=== PATIENT | male | born 1995 | race Two or more races ===

== ENCOUNTER 2022-01-18 02:38 | Emergency (ER) | payer SELFPAY ==
[2022-01-18 03:00] VITALS: BP 135/83; PULSE 109; RESP 16; TEMP 37.1; O2SAT 100; BMI 21.0
[2022-01-18 03:42] VITALS: BP 117/56; PULSE 93; RESP 14; O2SAT 98
[2022-01-18 04:00] LABS: Influenza A PCR POSITIVE (Negative); Influenza B PCR NEGATIVE (Negative); Resp Syncy Virus RNA Qual PCR NEGATIVE (Negative); SARS COV2 PCR INHOUSE NEGATIVE (Negative)
--- NOTE | 2022-01-18 04:16 | ED.GENADULT ---
HPI - General Adult General Chief complaint: General Medical Stated complaint: flu like symptoms, SoB Time Seen by Provider: 01/18/22 04:13 History of Present Illness HPI narrative: 26-year-old male presented with having coughing upper respiratory symptoms along nausea vomiting diarrhea generalized malaise. Patient home. Has been unable to keep down a great amount of fluid. Patient denies any bloody stool. Positive generalized malaise. Immunized for COVID. Patient is from home. Related Data Previous Rx's Medication Instructions Recorded ibuprofen 400 mg tablet 400 mg PO Q6H PRN #20 tab 01/18/22 ondansetron 4 mg disintegrating 4 mg PO TID PRN 5 Days #10 tab 01/18/22 tablet oseltamivir 75 mg capsule (Tamiflu) 75 mg PO BID 5 Days #10 cap 01/18/22 Allergies Allergy/AdvReac Type Severity Reaction Status Date / Time No Known Allergies Allergy Unverified 06/12/20 17:15 [No Known Allergies*] Review of Systems Review of Systems: Positive nausea positive vomiting positive diarrhea positive generalized malaise positive coughing Yes all other systems are reviewed and are negative [facility] Past Medical History Attestation statement: The following information was validated with the patient. Social History Social History Advance Directives: No Physical Exam ED Vital Signs: Vital Signs - 24 hr 01/18/22 03:00 01/18/22 03:42 Temperature 98.7 F Pulse Rate 109 H 93 Respiratory Rate 16 14 Blood Pressure 135/83 117/56 L Pulse Oximetry 100 98 BMI result Body Mass Index 21.0 Appearance: Alert. Oriented X3. No acute distress. Eyes: Pupils equal, round and reactive to light. ENT: Pharynx normal. Neck: Normal inspection. Neck supple. No lymph nodes noted. No crepitus CVS: Normal heart rate and rhythm. Pulses normal. Normal S1 and S2 Respiratory: No respiratory distress. Breath sounds normal. No Wheezing. No rales Abdomen: Soft and nontender. No rigidity. No distention. good BS x4 Skin: Skin warm and dry. Normal skin color. Normal skin turgor. Extremities: No lower extremity edema. Neurovascular intact to all extremities. No Lacerations. No Rash Neuro: Oriented X 3. No motor deficit. No sensory deficit. Moving all extermities. No slurred speech Medical Decision Making MDM Narrative Medical decision making narrative: Grossly appear dehydrated will give IV fluids x2 L Toradol Zofran for nausea and pain. In stable condition. Tamiflu prescription given. A dose was given here in emergency department. In stable condition Lab Data Lab results reviewed: Yes I reviewed the patient's lab results. Result diagrams: 01/18/22 04:26 01/18/22 04:26 Labs: Lab Results 01/18/22 01/18/22 01/18/22 Range/Units 03:14 04:26 04:26 WBC 8.9 (4.8-10.8) X10*3/uL RBC 4.65 (4.60-5.80) X10*6/uL Hgb 13.6 L (14.0-18.0) g/dl Hct 39.5 L (42.0-52.0) % MCV 84.9 (80.0-98.0) fL MCH 29.2 (27.0-33.0) pg MCHC 34.4 (31.0-36.0) g/dl RDW 11.5 (11.0-16.0) % Plt Count 213 (160-400) X10*3/uL MPV 9.6 (9.4-12.4) fL Immature Gran % (Auto) 0.2 (0.0-0.4) % Neut % (Auto) 89.7 H (45-73) % Lymph % (Auto) 3.3 L (20-40) % [place] % (Auto) 6.4 (2-11) % Eos % (Auto) 0.1 (0-4) % Baso % (Auto) 0.3 (0-2) % Lymph # (Auto) 0.3 L (1.2-4.9) X10*3/uL [place] # (Auto) 0.6 (0.1-1.2) X10*3/uL Eos # (Auto) 0.0 (0.0-0.4) X10*3/uL Baso # (Auto) 0.0 (0.0-0.2) X10*3/uL Abs Immat Gran (auto) 0.02 (0.00-0.03) X10*3/uL Absolute Neuts (auto) 8.0 (2.0-8.3) x10*3/uL Absolute Nucleated RBC 0.000 (0.0-0.012) X10*3/uL Nucleated RBC % (auto) 0.0 (0.0-0.2) /100WBC Sodium 137 (135-145) mmol/L Potassium 3.5 (3.3-5.1) mmol/L Chloride 105 (96-108) mmol/L Carbon Dioxide 23 (22-29) mmol/L Anion Gap 13 (12-20) BUN 10 (9-16) mg/dL Creatinine 0.87 (0.5-1.4) mg/dL Estim Creat Clear Calc 97.3 Estimated GFR > 60 Random Glucose 126 H (60-115) mg/dL Calcium 9.7 (8.4-10.2) mg/dL Influenza Type A (PCR) POSITIVE A (Negative) Influenza Type B (PCR) NEGATIVE (Negative) RSV RNA Qual (PCR) NEGATIVE (Negative) SARS-CoV-2 RNA (RT-PCR) NEGATIVE (Negative) Discharge Plan Discharge Clinical Impression: Influenza A Patient Disposition: Home, Self-Care Instructions: Influenza (ED) Prescriptions: New oseltamivir [Tamiflu] 75 mg capsule 75 mg PO BID 5 Days Qty: 10 0RF ibuprofen 400 mg tablet 400 mg PO Q6H PRN (Reason: pain) Qty: 20 0RF ondansetron 4 mg tablet,disintegrating 4 mg PO TID PRN (Reason: nausea and vomiting) 5 Days Qty: 10 0RF Referrals: Physician,Unknown J [Primary Care Provider] -
[2022-01-18] MEDS: 0.9 % Sodium Chloride 1,000 ML 999 ML IV ×2 (04:29→04:30)
[2022-01-18 04:31] LABS: Basophils Percent Auto 0.3 % (0-2); Eosinophils Percent Auto 0.1 % (0-4); Hematocrit 39.5 % (42.0-52.0); Hemoglobin 13.6 g/dl (14.0-18.0); Imm Gran Abs Auto 0.02 X10*3/uL (0.00-0.03); Imm Gran Pct Auto 0.2 % (0.0-0.4); Lymphocytes Absolute Auto 0.3 X10*3/uL (1.2-4.9); Lymphocytes Percent Auto 3.3 % (20-40); MANUAL DIFF FLAG NO; Mean Corpuscular HGB Conc 34.4 g/dl (31.0-36.0); Mean Corpuscular Hemoglobin 29.2 pg (27.0-33.0); Mean Corpuscular Volume 84.9 fL (80.0-98.0); Mean Platelet Volume 9.6 fL (9.4-12.4); Monocytes Absolute Auto 0.6 X10*3/uL (0.1-1.2); Monocytes Percent Auto 6.4 % (2-11); Neutrophils Percent Auto 89.7 % (45-73); Platelet Count 213 X10*3/uL (160-400); Red Blood Count 4.65 X10*6/uL (4.60-5.80); Red Cell Distribution Width 11.5 % (11.0-16.0); White Blood Count 8.9 X10*3/uL (4.8-10.8)
[2022-01-18] MEDS: Oseltamivir Phosphate 75 MG CAPSULE PO (04:35)
[2022-01-18] MEDS: ondansetron HCL 4 MG/2 ML VIAL IVPUSH (04:35)
[2022-01-18] MEDS: Ketorolac Tromethamine 30 MG/ML VIAL IVPUSH (04:35)
[2022-01-18 04:48] LABS: Anion Gap 13 (12-20); Blood Urea Nitrogen 10 mg/dL (9-16); Calcium 9.7 mg/dL (8.4-10.2); Carbon Dioxide 23 mmol/L (22-29); Chloride 105 mmol/L (96-108); Creatinine Clr Calc Pharmacy 97.3; Estimated Glomerular Filt Rate > 60; Glucose Random 126 mg/dL (60-115); Potassium 3.5 mmol/L (3.3-5.1); Sodium 137 mmol/L (135-145)
[2022-01-18 05:25] VITALS: BP 110/62; PULSE 99; RESP 18; TEMP 38; O2SAT 98
== END 2022-01-18 06:09 | disposition home or self-care (01) ==
PROVIDERS: Emergency Provider Emergency Medicine Emergency Medical Services
DX: J10.1 Influenza due to other identified influenza virus with other respiratory manifestations (principal); R05.9 Cough, unspecified; Z79.899 Other long term (current) drug therapy; Z20.822 Contact with and (suspected) exposure to COVID-19
CPT/HCPCS: 0241U; 36415; 80048; 85025; 96361; 96374; 96375; 99284; J1885; J2405

== ENCOUNTER 2023-11-15 11:53 | Emergency (ER) | payer MEDICAID, SELFPAY ==
[2023-11-15 12:18] VITALS: BP 112/83; PULSE 100; RESP 18; TEMP 36.6; O2SAT 99; BMI 20.6
--- NOTE | 2023-11-15 12:23 | ED_ITS ---
HPI - General Adult General Chief complaint: Upper Respiratory Symptoms Stated complaint: Diff Breathing Time Seen by Provider: 11/15/23 14:25 Source: patient Mode of arrival: ambulatory Limitations: no limitations History of Present Illness HPI narrative: 28 yold male presents to the ED for bodyaches, fever, fatigue, and slight cough. Patient deneis any shortness of breath Related Data Previous Rx's Medication Instructions Recorded ibuprofen 400 mg tablet 400 mg PO Q6H PRN pain #20 tabs 01/18/22 ondansetron 4 mg disintegrating 4 mg PO TID PRN nausea and 01/18/22 tablet vomiting 5 days #10 tabs oseltamivir 75 mg capsule (Tamiflu) 75 mg PO BID 5 days #10 caps 01/18/22 oseltamivir 75 mg capsule (Tamiflu) 75 mg PO BID 5 days #10 caps 11/15/23 Allergies Allergy/AdvReac Type Severity Reaction Status Date / Time No Known Allergies Allergy Verified 11/15/23 12:18 [No Known Allergies*] Review of Systems Review of Systems: fever, bodyaches, fatigue, cough Yes all other systems are reviewed and are negative [facility] Social History Social History Advance Directives: No Physical Exam ED Vital Signs: Vital Signs - 24 hr 11/15/23 12:18 Temperature 98 F Pulse Rate 100 Respiratory Rate 18 Blood Pressure 112/83 Pulse Oximetry 99 BMI result Body Mass Index 20.6 Const General: cooperative, healthy appearing, comfortable, no acute distress, well developed, alert, awake and Physically active Orientation/consciousness: oriented to person, oriented to place, oriented to time and patient oriented x3 HENMT Head: Yes normal to inspection, Yes No palpable skull fracture present, Yes normocephalic and Yes atraumatic Ears: hearing grossly normal bilaterally, external ears normal, TM's normal bilaterally, TM normal on the right, TM normal on the left, EAC's normal, mastoids normal and no periauricular adenopathy Throat: Yes posterior oropharynx normal, Yes tonsils normal and Yes uvula midline Eyes General: appearance normal, both eyes and all related structures Neck Neck: Yes normal visual inspection, Yes full ROM, Yes no lymphadenopathy, Yes no meningeal signs, Yes trachea midline, Yes supple, No anterior neck swelling and No tender Chest Chest palpation & inspection: normal inspection of the chest and normal palpation of entire chest wall Resp Effort & Inspection: normal respiratory effort and able to speak in complete sentences Auscultation: clear to auscultation bilaterally Cardio Jugular venous distension: no JVD Heart sounds: S1 normal heart sound present and S2 normal heart sound present GI Inspection: Yes normal to inspection Palpation (GI): Soft to palpation, not firm, nontender, no guarding and not rigid General: Yes no CVA tenderness Back/Spine/Pelvis Back: no CVA tenderness and No back tenderness Skin General skin exam: no rashes or lesions noted, elasticity normal and turgor normal Neuro General: oriented to person, oriented to place, oriented to time, patient oriented x3, gait normal, tone normal, moves all extremities, Normal light touch and pain sensation, no meningeal signs and no focal motor deficits Extrem General: Yes normal to inspection, Yes full ROM and Yes capillary refill normal Psych Appearance: grossly normal, well kempt and not disheveled Course Course Course Narrative: RME: 28 yold female presents to the ED for coughing, bodyaches, chills, and subjecitve fever since yesterdays. Vital stables. SARS and strep ordred Medical Decision Making Medical Decision Making [facility] Narrative: 28 yold presents to the ED for URI symptoms. Positive influenxa. Patient discharged with tamiflu. patient explained worrisome signs and informed to return if he has them. Differential Diagnosis Differential Diagnoses: The differential diagnosis associated with the presentation includes (covid/flu/RSV) Admission/Observation Consideration of admission/observation: Escalation of care including admission/observation considered Lab Data [facility] Lab Attestation statement: I reviewed the patient's lab results. Labs: Lab Results 11/15/23 Range/Units 13:11 Influenza Type A (PCR) POSITIVE A (Negative) Influenza Type B (PCR) NEGATIVE (Negative) RSV RNA Qual (PCR) NEGATIVE (Negative) SARS-CoV-2 RNA (RT-PCR) NEGATIVE (Negative) S. pyogenes GrpA KATY Negative (Negative) External Record Review External record reviewed: Other (Prior visits) Prescription Management I considered prescription management with: Antiviral Discharge Plan Discharge Clinical Impression: Influenza Patient Disposition: Home, Self-Care Instructions: Influenza (ED) Additional Instructions: Recommend follow-up with primary care provider. Return to the ED immediately for any chest pain, shortness of breath, weakness, dizziness, or any other concerning symptoms. Prescriptions: New oseltamivir [Tamiflu] 75 mg capsule 75 mg PO BID 5 Days Qty: 10 0RF No Action oseltamivir [Tamiflu] 75 mg capsule 75 mg PO BID 5 Days Qty: 10 0RF ibuprofen 400 mg tablet 400 mg PO Q6H PRN (Reason: pain) Qty: 20 0RF ondansetron 4 mg tablet,disintegrating 4 mg PO TID PRN (Reason: nausea and vomiting) 5 Days Qty: 10 0RF Stand Alone Forms: Work/School Release Interventions: ED Discharge Assessment Last Done: 11/15/23 14:47 Discharge Date/Time: 11/15/23 14:47 Print Language: Bahamian
[2023-11-15 13:47] LABS: IDNOW Serial# 08D9AD1C; Strep A Nucleic Acid Negative (Negative)
[2023-11-15 14:06] LABS: Influenza A PCR POSITIVE (Negative); Influenza B PCR NEGATIVE (Negative); Resp Syncy Virus RNA Qual PCR NEGATIVE (Negative); SARS COV2 PCR INHOUSE NEGATIVE (Negative)
== END 2023-11-15 14:47 | disposition home or self-care (01) ==
PROVIDERS: Physician Assistant; Emergency Provider Emergency Medicine
DX: J10.1 Influenza due to other identified influenza virus with other respiratory manifestations (principal); R06.02 Shortness of breath; M79.10 Myalgia, unspecified site; R05.9 Cough, unspecified; Z20.822 Contact with and (suspected) exposure to COVID-19; Z11.52 Encounter for screening for COVID-19
CPT/HCPCS: 0241U; 87651; 99282; 99283

== ENCOUNTER 2025-01-31 22:52 | Emergency (ER) | payer MEDICAID, SELFPAY ==
--- NOTE | 2025-01-31 | ECG_ITS ---
Test Reason : SOB Blood Pressure : */* mmHG Vent. Rate : 100 BPM Atrial Rate : 100 BPM P-R Int : 152 ms QRS Dur : 94 ms QT Int : 336 ms P-R-T Axes : 74 -9 50 degrees QTcB Int : 433 ms Normal sinus rhythm Possible Left atrial enlargement Incomplete right bundle branch block Borderline ECG No previous ECGs available Referred By: Generic ED Physician Electronically Signed By: CHRISTI MILLER
[2025-01-31 22:55] VITALS: BP 103/59; PULSE 99; RESP 20; TEMP 36.6; O2SAT 100; BMI 20.4
[2025-01-31 23:14] LABS: MANUAL DIFF FLAG NO
[2025-01-31 23:15] LABS: Basophils Absolute Auto 0.1 X10*3/uL (0.0-0.2); Basophils Percent Auto 0.7 % (0-2); Eosinophils Absolute Auto 0.1 X10*3/uL (0.0-0.4); Eosinophils Percent Auto 1.9 % (0-4); Hematocrit 42.5 % (42.0-52.0); Imm Gran Abs Auto 0.02 X10*3/uL (0.00-0.03); Imm Gran Pct Auto 0.3 % (0.0-0.4); Lymphocytes Percent Auto 27.2 % (20-40); Mean Corpuscular HGB Conc 35.3 g/dl (31.0-36.0); Mean Corpuscular Hemoglobin 29.6 pg (27.0-33.0); Mean Platelet Volume 9.8 fL (9.4-12.4); Monocytes Absolute Auto 0.6 X10*3/uL (0.1-1.2); Monocytes Percent Auto 7.9 % (2-11); Neutrophils Absolute Auto 4.6 x10*3/uL (2.0-8.3); Platelet Count 213 X10*3/uL (160-400); Red Blood Count 5.06 X10*6/uL (4.60-5.80); Red Cell Distribution Width 11.9 % (11.0-16.0); White Blood Count 7.4 X10*3/uL (4.8-10.8)
[2025-01-31 23:28] LABS: Alanine Aminotransferase 11 U/L (0-40); Albumin Level 4.8 g/dL (3.5-5.0); Alkaline Phosphatase 70 U/L (39-117); Anion Gap 16 (12-20); Aspartate Amino Transferase 17 U/L (5-37); Bilirubin Total 0.9 mg/dL (0.0-1.0); Blood Urea Nitrogen 12 mg/dL (9-16); Calcium 10.1 mg/dL (8.4-10.2); Carbon Dioxide 24 mmol/L (22-29); Chloride 105 mmol/L (96-108); Creatinine Clr Calc Pharmacy 99.6; Estimated Glomerular Filt Rate > 60; Glucose Random 96 mg/dL (60-115); Potassium 3.7 mmol/L (3.3-5.1); Sodium 141 mmol/L (135-145); Total Protein 7.7 g/dL (6.5-8.0)
[2025-01-31 23:51] LABS: Influenza A PCR NEGATIVE (Negative); Influenza B PCR NEGATIVE (Negative); Resp Syncy Virus RNA Qual PCR NEGATIVE (Negative); SARS COV2 PCR INHOUSE NEGATIVE (Negative)
[2025-01-31] MEDS: 0.9 % Sodium Chloride 1,000 ML 999 ML IV (23:56)
--- NOTE | 2025-02-01 00:05 | PC.NURSE ---
episode of pink and bileous colored emesis. CHASE Jaeger observed
[2025-02-01] MEDS: Midazolam HCl 2 MG/2 ML VIAL IVPUSH (00:13)
--- NOTE | 2025-02-01 02:17 | ED_ITS ---
HPI - General Adult General Chief complaint: Nausea/Vomiting/Diarrhea Stated complaint: cold sweats, diarrhea, Time Seen by Provider: 01/31/25 23:47 Source: patient Limitations: no limitations History of Present Illness ED Provider: Solange Tatum PA-C HPI narrative: 29-year-old male presents with nausea vomiting diarrhea since earlier today. Patient's mother is sick with similar symptoms. Patient denies abdominal pain, but states his abdomen is ?uncomfortable?. Denies fever, use of antibiotics, recent hospitalization or travel. Related Data Previous Rx's ?Medication ?Instructions ?Recorded ibuprofen 400 mg tablet 400 mg PO Q6H PRN pain #20 tabs 01/18/22 ondansetron 4 mg disintegrating 4 mg PO TID PRN nausea and 01/18/22 tablet vomiting 5 days #10 tabs oseltamivir 75 mg capsule (Tamiflu) 75 mg PO BID 5 days #10 caps 01/18/22 oseltamivir 75 mg capsule (Tamiflu) 75 mg PO BID 5 days #10 caps 11/15/23 dicyclomine 20 mg tablet 20 mg PO BID PRN abdominal pain #7 02/01/25 tabs ondansetron HCl 4 mg tablet 4 mg PO Q8H PRN nausea and 02/01/25 vomiting #10 tabs Allergies Allergy/AdvReac Type Severity Reaction Status Date / Time No Known Allergies Allergy Verified 01/31/25 22:57 [No Known Allergies*] Review of Systems 2 Review of Systems: Yes all other systems are reviewed and are negative Constitutional: Constitutional: Denies fatigue and Denies fever(s) Cardiovascular: Cardiovascular: Denies chest pain and Denies dyspnea Respiratory: Respiratory: Denies chest congestion, Denies cough and Denies dyspnea Gastrointestinal: Gastrointestinal: Reports abdominal pain, Reports diarrhea, Reports nausea and Reports vomiting Endocrine: Endocrine: Denies fatigue PMFSH Past Medical History Attestation statement: The following information was validated with the patient. Social History Social History Smoked in Last 30 Days: No Use of substances other than those prescribed or required for medical reasons: Yes Substance Use Type: Marijuana Advance Directives: No Advance Directives Information Provided: Yes Physical Exam ED Vital Signs: Vital Signs - 24 hr 01/31/25 22:55 Temperature 98 F Pulse Rate 99 Respiratory Rate 20 Blood Pressure 103/59 L Pulse Oximetry 100 Oxygen Delivery Method Room Air BMI result Body Mass Index 20.4 Const Other: Alert, ill-appearing, actively vomiting Orientation/consciousness: patient oriented x3 Resp Effort & Inspection: normal respiratory effort Cardio Other: Normal peripheral perfusion GI Other: Abdomen is soft, nontender nondistended no guarding Skin Other: Warm dry no rash Neuro General: patient oriented x3, gait normal, no focal motor deficits and CN's II- XI intact bilaterally Psych Other: Cooperative Course Reevaluation(s) Reevaluation #1: Patient's symptoms improved we will discharge Medications Administered Discontinued Medications Generic Name Dose Route Start Last Admin Trade Name Freq PRN Reason Stop Dose Admin Sodium Chloride 1,000 mls @ 999 mls/hr 01/31/25 23:45 02/01/25 01:26 Ns IV 02/01/25 00:45 Infused .Q1H1M KANDI Infusion Midazolam HCl 2 mg 01/31/25 23:57 02/01/25 00:13 Midazolam Hcl 2 Mg/2 Ml Vial IVPUSH 01/31/25 23:58 2 mg ONCE ONE Administration Medical Decision Making Medical Decision Making [facility] Narrative: 29-year-old male presents with nausea vomiting diarrhea since earlier today. Patient's mother is sick with similar symptoms. Patient denies abdominal pain, but states his abdomen is ?uncomfortable?. Denies fever, use of antibiotics, recent hospitalization or travel. No chronic issues History: Per patient I have considered the following differential diagnoses: Viral syndrome, gastroenteritis, diverticulitis, traveler's diarrhea, C diff Plan: Screening labs and a viral panel are in process, given the patient's mother is sick with similar symptoms, this is likely viral gastroenteritis. We will be treating with antiemetic and saline. The patient is a exam is nonfocal, he does not require imaging, and he denies abdominal pain. He has no risk factors for traveler's diarrhea or C diff. I have independently reviewed the following tests: Labs: No leukocytosis, not anemic, no electrolyte abnormality, viral panel negative Lab Data 01/31/25 23:10 01/31/25 23:10 Labs: Lab Results 01/31/25 Range/Units 23:10 WBC 7.4 (4.8-10.8) X10*3/uL RBC 5.06 (4.60-5.80) X10*6/uL Hgb 15.0 (14.0-18.0) g/dl Hct 42.5 (42.0-52.0) % MCV 84.0 (80.0-98.0) fL MCH 29.6 (27.0-33.0) pg MCHC 35.3 (31.0-36.0) g/dl RDW 11.9 (11.0-16.0) % Plt Count 213 (160-400) X10*3/uL MPV 9.8 (9.4-12.4) fL Immature Gran % (Auto) 0.3 (0.0-0.4) % Neut % (Auto) 62.0 (45-73) % Lymph % (Auto) 27.2 (20-40) % [place] % (Auto) 7.9 (2-11) % Eos % (Auto) 1.9 (0-4) % Baso % (Auto) 0.7 (0-2) % Lymph # (Auto) 2.0 (1.2-4.9) X10*3/uL [place] # (Auto) 0.6 (0.1-1.2) X10*3/uL Eos # (Auto) 0.1 (0.0-0.4) X10*3/uL Baso # (Auto) 0.1 (0.0-0.2) X10*3/uL Abs Immat Gran (auto) 0.02 (0.00-0.03) X10*3/uL Absolute Neuts (auto) 4.6 (2.0-8.3) x10*3/uL Absolute Nucleated RBC 0.000 (0.0-0.012) X10*3/uL Nucleated RBC % (auto) 0.0 (0.0-0.2) /100WBC Sodium 141 (135-145) mmol/L Potassium 3.7 (3.3-5.1) mmol/L Chloride 105 (96-108) mmol/L Carbon Dioxide 24 (22-29) mmol/L Anion Gap 16 (12-20) BUN 12 (9-16) mg/dL Creatinine 0.80 (0.5-1.4) mg/dL Estim Creat Clear Calc 99.6 Estimated GFR > 60 Random Glucose 96 (60-115) mg/dL Calcium 10.1 (8.4-10.2) mg/dL Total Bilirubin 0.9 (0.0-1.0) mg/dL AST 17 (5-37) U/L ALT 11 (0-40) U/L Alkaline Phosphatase 70 (39-117) U/L Total Protein 7.7 (6.5-8.0) g/dL Albumin 4.8 (3.5-5.0) g/dL Influenza Type A (PCR) NEGATIVE (Negative) Influenza Type B (PCR) NEGATIVE (Negative) RSV RNA Qual (PCR) NEGATIVE (Negative) SARS-CoV-2 RNA (RT-PCR) NEGATIVE (Negative) Discharge Plan Discharge Clinical Impression: Gastroenteritis Patient Disposition: Home, Self-Care Instructions: Gastroenteritis (ED) Additional Instructions: You are being treated for viral gastroenteritis, given your mother is sick with the same symptoms, this is likely where she has a as well. See home care instructions. To note, all of your screening labs were normal, you were also tested for influenza COVID and RSV, the viral panel was negative. Uses Zofran as needed for nausea, use the dicyclomine as needed for abdominal pain. Follow up with your primary care provider as needed. Prescriptions: New dicyclomine 20 mg tablet 20 mg PO BID PRN (Reason: abdominal pain) Qty: 7 0RF ondansetron HCl 4 mg tablet 4 mg PO Q8H PRN (Reason: nausea and vomiting) Qty: 10 0RF No Action oseltamivir [Tamiflu] 75 mg capsule 75 mg PO BID 5 Days Qty: 10 0RF ibuprofen 400 mg tablet 400 mg PO Q6H PRN (Reason: pain) Qty: 20 0RF ondansetron 4 mg tablet,disintegrating 4 mg PO TID PRN (Reason: nausea and vomiting) 5 Days Qty: 10 0RF oseltamivir [Tamiflu] 75 mg capsule 75 mg PO BID 5 Days Qty: 10 0RF Stand Alone Forms: Work/School Release Print Language: Icelandic
--- NOTE | 2025-02-01 02:45 | PC.NURSE ---
pt states he feels so much better than on arrival. still endorses 1/ abd discomfort. no n/v or anxiety presently per pt statement
[2025-02-01 02:48] VITALS: BP 119/69; PULSE 94; RESP 18; TEMP 36.9; O2SAT 99
[2025-02-01 02:53] VITALS: BP 119/69; PULSE 94; RESP 18; TEMP 36.9; O2SAT 99
== END 2025-02-01 03:02 | disposition home or self-care (01) ==
PROVIDERS: Emergency Provider Internal Medicine
DX: K52.9 Noninfective gastroenteritis and colitis, unspecified (principal); R11.2 Nausea with vomiting, unspecified; R06.02 Shortness of breath; Z03.818 Encounter for observation for suspected exposure to other biological agents ruled out; Z79.899 Other long term (current) drug therapy
CPT/HCPCS: 0241U; 80053; 85025; 93005; 96361; 96374; 99284; 99285; J2250

== ENCOUNTER → 2025-01-31 23:02 | Outpatient (BNV) | payer MEDICAID, SELFPAY | PROVIDERS: Emergency Provider Internal Medicine; Visit Provider Internal Medicine | DX: I45.10 Unspecified right bundle-branch block (principal) | CPT/HCPCS: 93010 ==